=== PATIENT | male | born 1990 | race Caucasian/White ===

== ENCOUNTER 2017-07-14 22:12 | Emergency (ER) | payer MEDICARE, MEDICAID ==
[2017-07-14 22:51] LABS: #Basophils 0.1 thou/uL (0.0-0.2); #Eosinphils 0.4 thou/uL (0.0-0.7); #Lymphocytes 3.7 thou/uL (1.20-3.40); #Monocytes 0.7 thou/uL (0.11-0.59); #Neutrophils 6.8 thou/uL (1.40-6.50); %Basophils 0.8 % (0.0-1.0); %Eosinophils 3.1 % (0.0-10.0); %Lymphocytes 31.6 % (21.0-51.0); %Monocytes 6.3 % (0.0-10.0); %Neutrophils 58.2 % (42.0-75.0); Hemoglobin 15.2 g/dL (14.0-18.0); Mean Corpuscular HGB CONC 33.9 g/dL (32.0-36.0); Mean Corpuscular Hemoglobin 32.5 pg (27.0-31.0); Mean Corpuscular Volume 96.1 fl (80.0-94.0); Mean Platelet Volume 7.1 fL (7.4-10.4); Platelet Count 407 thou/uL (130-400); RBC Distribution Width 11.9 % (11.5-14.5); Red Blood Cell (RBC) Count 4.67 mill/uL (4.70-6.10); White Blood Cell (WBC) Count 11.7 thou/uL (4.8-10.8)
[2017-07-14 22:58] LABS: PTT 30.4 SEC (22.9-36.1); Prothrombin Time 13.3 SEC (12.0-14.7)
[2017-07-14 23:13] LABS: ALT (SGPT) 31 U/L (8-55); AST (SGOT) 19 U/L (5-34); Albumin 4.5 g/dL (3.5-5.0); Alkaline Phosphatase 93 U/L (40-150); Anion Gap 13 mmol/L (10-20); BUN (Urea Nitrogen) 11 mg/dL (8.9-20.6); Bilirubin, Total 0.3 mg/dL (0.2-1.2); CK (CPK) 112 U/L (30-200); Calc. Creatinine Clearance 0 mL/min (70-130); Calcium 9.2 mg/dL (7.8-10.44); Carbon Dioxide 26 mmol/L (22-29); Chloride 105 mmol/L (98-107); Estimated GFR-MDRD 62; Globulin 3.4 g/dL (2.4-3.5); Glucose 98 mg/dL (70-105); Potassium 3.7 mmol/L (3.5-5.1); Protein, Total 7.9 g/dL (6.0-8.3); Sodium 140 mmol/L (136-145)
[2017-07-14 23:17] LABS: CKMB 0.6 ng/mL (0-6.6); Troponin I Less than 0.010 ng/mL (< 0.028)
[2017-07-15] MEDS ORDERED: Ibuprofen 800 MG TAB ONE (00:42)
--- NOTE | 2017-07-15 08:44 | RAD ---
UPRIGHT PORTABLE CHEST 1 VIEW: HISTORY: A 27-year-old male with a history of chest pain which began this morning. COMPARISON: 08/15/09. FINDINGS: Heart size is normal. Monitor leads overlie the chest. No confluent pneumonia, overt edema, or pleu ral effusion. IMPRESSION: No acute intrathoracic disease. POS: OFF
== END 2017-07-15 01:32 | disposition home or self-care (01) ==
LOC: ERS 22:12
DX: R07.89 Other chest pain (principal)
CPT/HCPCS: 36415; 71045; 80053; 82553; 83880; 84484; 85025; 85610; 85730; 93005

== ENCOUNTER 2022-05-18 20:16 | Emergency (ER) | payer MEDICARE, MEDICAID ==
[2022-05-18] MEDS ORDERED: Boostrix 0.5 ML (Tdap) VIAL (>/=7 yrs of age) ONE ×2 (20:32→20:39)
== END 2022-05-18 21:04 | disposition home or self-care (01) ==
LOC: ERS 20:16
DX: S61.511A Laceration without foreign body of right wrist, initial encounter (principal); F17.210 Nicotine dependence, cigarettes, uncomplicated; W26.9XXA Contact with unspecified sharp object(s), initial encounter
CPT/HCPCS: 12001; 90471; 90715

== ENCOUNTER 2022-05-27 17:53 | Emergency (ER) | payer MEDICARE, OTHER | END 2022-05-27 19:53 | disposition home or self-care (01) | LOC: ERS 17:53 | DX: S81.811D Laceration without foreign body, right lower leg, subsequent encounter (principal); F17.210 Nicotine dependence, cigarettes, uncomplicated; X58.XXXD Exposure to other specified factors, subsequent encounter ==

== ENCOUNTER 2022-09-01 12:48 | Emergency (ER) | payer MEDICARE, MEDICAID ==
[2022-09-01] MEDS ORDERED: Ketorolac Tromethamine 30 MG/ML VIAL ONE (14:51)
[2022-09-01] MEDS ORDERED: Metoclopramide HCl 10 MG/2 ML VIAL ONE (14:51)
== END 2022-09-01 16:10 | disposition home or self-care (01) ==
LOC: ERS 12:48
DX: G43.909 Migraine, unspecified, not intractable, without status migrainosus (principal); K08.89 Other specified disorders of teeth and supporting structures; F17.210 Nicotine dependence, cigarettes, uncomplicated
CPT/HCPCS: 96361; 96374; 96375; J1885; J2765

== ENCOUNTER 2023-08-25 11:33 | Emergency (ER) | payer MEDICARE, MEDICAID | END 2023-08-25 13:04 | disposition home or self-care (01) | LOC: ERS 11:33 | DX: J06.9 Acute upper respiratory infection, unspecified (principal); R51.9 Headache, unspecified; Z55.6 Problems related to health literacy | CPT/HCPCS: 99283 ==